=== PATIENT | female | born 1980 | race Caucasian/White ===

== ENCOUNTER 2017-02-26 10:42 | Day surgery (SDC) | payer MEDICAID ==
[2017-02-24 12:49] LABS: Basophils # (auto) 0 uL; Basophils % (auto) 0.2 % (0.0-2.0); Eosinophils # (auto) 0.2 uL; Eosinophils % (auto) 1.3 % (0.0-7.0); Hematocrit 43.1 % (36.0-46.0); Hemoglobin 14.5 g/dL (12.2-16.2); Lymphocytes # (auto) 1.9 uL; Mean Corpuscular Hemoglobin 29.3 pg (28.0-32.0); Mean Corpuscular Hgb Conc. 33.6 g/dL (32.0-36.0); Mean Corpuscular Volume 87.2 fL (80.0-100.0); Mean Platelet Volume 8.8 fL (6.9-10.8); Monocytes # (auto) 0.6 uL; Monocytes % (auto) 4.7 % (0.0-12.0); Neutrophils # (auto) 9.3 uL; Neutrophils % (auto) 77.8 % (37.0-80.0); Nucleated Red Blood Cells % 0.1 %; Platelet Count (auto) 253 10^3/uL (140-450); Red Cell Distribution Width 13.3 % (11.8-14.3)
[2017-02-24 12:54] LABS: Urine Bilirubin Negative (Negative); Urine Blood Negative /uL (Negative); Urine Color Yellow (Yellow); Urine Glucose Normal (Normal); Urine Ketone 2+ (Negative); Urine Nitrite Negative (Negative); Urine Urobilinogen Normal (Negative)
[2017-02-24 13:07] LABS: INR 0.92 (0.9-1.15); Partial Thromboplastin Time 25.4 sec (22.64-33.71)
[2017-02-24 13:44] LABS: Albumin 3.8 g/dL (3.4-5.0); BUN/Creatinine Ratio 15.2; Bilirubin, Total 0.5 mg/dL (0.2-1.0); Calcium 8.9 mg/dL (8.5-10.1); Potassium 3.7 mmol/L (3.5-5.1); Total Protein 7.9 g/dL (6.4-8.2)
[~2017-02-26] VITALS: Ht 170.2 cm; Wt 109.3 kg
[~2017-02-26 10:42] MED LIST: PREN-96 PO
[2017-02-26] MEDS ORDERED: ceFAZolin 1GM/50ML 50 ML IV ONE (10:50)
[2017-02-26] MEDS ORDERED: PROPOFOL 10 MG/ML 20 ML IV ONE (13:27)
[2017-02-26] MEDS ORDERED: ePHEDrine SULFATE 50 MG/ML AMP IV PRN (14:00)
[2017-02-26] MEDS ORDERED: LACTATED RINGER'S 1,000 ML IV SCH (14:07)
[2017-02-26 14:36] VITALS: BP 120/67
== END 2017-02-26 14:50 | disposition home or self-care (01) ==
LOC: SUR 10:42
PROVIDERS: ATTEND Specialist
DX: O03.4 Incomplete spontaneous abortion without complication (principal); O31.20X3 Continuing pregnancy after intrauterine death of one fetus or more, unspecified trimester, fetus 3; Z3A.30 30 weeks gestation of pregnancy; O03.9 Complete or unspecified spontaneous abortion without complication; O34.33 Maternal care for cervical incompetence, third trimester; E66.9 Obesity, unspecified
CPT/HCPCS: 36415; 80053; 80307; 81003; 81220; 83036; 84702; 85025; 85610; 85730; 86592; 86703; 86762; 86850; 86900; 86901; 87340; J0690; J2704

== ENCOUNTER → 2017-04-17 | Outpatient (CLI) | payer MEDICAID | END | disposition home or self-care (01) | LOC: LAB 09:14 | PROVIDERS: ATTEND Specialist | DX: N39.0 Urinary tract infection, site not specified (principal) | CPT/HCPCS: 87086 ==

== ENCOUNTER → 2017-05-20 | Outpatient (CLI) | payer MEDICAID ==
[2017-05-20 10:26] LABS: Basophils # (auto) 0.1 uL; Basophils % (auto) 0.6 % (0.0-2.0); Eosinophils # (auto) 0.2 uL; Eosinophils % (auto) 1.7 % (0.0-7.0); Lymphocytes # (auto) 1.9 uL; Lymphocytes % (auto) 14.4 % (10.0-50.0); Mean Corpuscular Hemoglobin 29.1 pg (28.0-32.0); Mean Corpuscular Hgb Conc. 33.3 g/dL (32.0-36.0); Mean Corpuscular Volume 87.5 fL (80.0-100.0); Monocytes # (auto) 0.7 uL; Monocytes % (auto) 5.4 % (0.0-12.0); Neutrophils # (auto) 10.5 uL; Neutrophils % (auto) 77.9 % (37.0-80.0); Platelet Count (auto) 246 10^3/uL (140-450); Red Blood Cells 4.46 10^6/uL (4.0-5.20); Red Cell Distribution Width 13.3 % (11.8-14.3); White Blood Cell 13.4 10^3/uL (4.4-10.8)
== END | disposition home or self-care (01) ==
LOC: LAB 09:55
PROVIDERS: ATTEND Specialist
DX: O99.810 Abnormal glucose complicating pregnancy (principal); Z3A.00 Weeks of gestation of pregnancy not specified
CPT/HCPCS: 36415; 82951; 85025

== ENCOUNTER 2017-06-12 03:26 | Observation (INO) | payer MEDICAID | END 2017-06-12 05:05 | disposition home or self-care (01) | DRG 566 | LOC: LDRP 03:26 | PROVIDERS: ADMIT Specialist; ATTEND Specialist | DX: O26.892 Other specified pregnancy related conditions, second trimester (principal); O09.522 Supervision of elderly multigravida, second trimester; R10.9 Unspecified abdominal pain; Z3A.27 27 weeks gestation of pregnancy | CPT/HCPCS: 59025; 94760; G0378 ==

== ENCOUNTER 2017-08-26 14:00 | Observation (INO) | payer MEDICAID | END 2017-08-26 18:39 | disposition home or self-care (01) | DRG 566 | LOC: LDRP 14:00 | PROVIDERS: ADMIT Specialist; ATTEND Specialist | DX: O34.33 Maternal care for cervical incompetence, third trimester (principal); Z3A.38 38 weeks gestation of pregnancy | CPT/HCPCS: 59025; 81002; G0378 ==

== ENCOUNTER 2017-09-01 00:19 | Inpatient (IN) | payer MEDICAID ==
[~2017-09-01] VITALS: Ht 170.2 cm; Wt 113.9 kg
[2017-09-01] MEDS ORDERED: LACTATED RINGER'S 1,000 ML IV SCH (01:20)
[2017-09-01] MEDS ORDERED: LACT. RINGERS/OXYTOCIN 20UNITS 1,000 ML IV SCH (01:20)
[2017-09-01] MEDS ORDERED: PENICILLIN G POT 5MIL/D5 50ML 50 ML IV ONE ×2 (01:28→01:30)
[2017-09-01] MEDS ORDERED: METHYLERGONOVINE MALEATE 0.2 MG/ML AMP IM PRN (01:30)
[2017-09-01] MEDS ORDERED: NALBUPHINE HCL 10 MG/1ml INJECTION IV PRN (01:30)
[2017-09-01] MEDS ORDERED: PHISODERM TOP SOLN 240ML BTL TOP PRN (01:30)
[2017-09-01] MEDS ORDERED: DERMOPLAST 60ML BOTTLE TOP PRN (01:30)
[2017-09-01] MEDS ORDERED: PROMETHAZINE HCL 25 MG/ML 1ML IM PRN (01:30)
[2017-09-01] MEDS ORDERED: LIDOCAINE 2% (LOCAL ANESTH.) PF 5ml SDV ID ONE (01:30)
[2017-09-01] MEDS ORDERED: WITCH HAZEL-GLYCERIN PAD TOP PRN (01:30)
[2017-09-01 01:32] LABS: Urine Bacteria FEW /hpf (None Seen); Urine Blood 1+ /uL (Negative); Urine Mucus FEW (None Seen); Urine WBC 4 /hpf (0 - 5)
[2017-09-01 01:37] LABS: Alcohol, Urine < 3.0 mg/dL (0-5); Amphetamine Screen, Urine NEGATIVE (NEGATIVE); Barbiturate Scree,Urine NEGATIVE (NEGATIVE); Benzodiazephine Screen, Urine NEGATIVE (NEGATIVE); Cannabinoid Screen, Urine NEGATIVE (NEGATIVE); Cocaine Screen, Urine NEGATIVE (NEGATIVE); Opiate Scree,Urine NEGATIVE (NEGATIVE); Phencyclidine Screen, Urine NEGATIVE (NEGATIVE)
[2017-09-01] MEDS ORDERED: LIDOCAINE 2% (LOCAL ANESTH.) PF 5ml SDV ONE (01:56)
[2017-09-01 02:01] LABS: Basophils # (auto) 0.1 uL; Basophils % (auto) 0.5 % (0.0-2.0); Eosinophils # (auto) 0 uL; Eosinophils % (auto) 0.3 % (0.0-7.0); Hematocrit 39.4 % (36.0-46.0); Lymphocytes # (auto) 1.3 uL; Lymphocytes % (auto) 9.2 % (10.0-50.0); Mean Corpuscular Hgb Conc. 33.1 g/dL (32.0-36.0); Mean Corpuscular Volume 84.4 fL (80.0-100.0); Monocytes # (auto) 0.7 uL; Neutrophils # (auto) 11.7 uL; Nucleated Red Blood Cells % 0.1 %; Platelet Count (auto) 225 10^3/uL (140-450); Red Blood Cells 4.66 10^6/uL (4.0-5.20); Red Cell Distribution Width 14.5 % (11.8-14.3); White Blood Cell 13.8 10^3/uL (4.4-10.8)
[2017-09-01 02:21] LABS: Albumin 2.7 g/dL (3.4-5.0); BUN/Creatinine Ratio 14.3; Calcium 8.8 mg/dL (8.5-10.1); Potassium 3.8 mmol/L (3.5-5.1)
[2017-09-01 02:24] LABS: Bilirubin, Total 0.2 mg/dL (0.2-1.0); INR 0.87 (0.9-1.15); Partial Thromboplastin Time 26.1 sec (23.78-33.04); Prothrombin Time 9.4 sec (9.27-12.13); Total Protein 6.9 g/dL (6.4-8.2)
[2017-09-01] MEDS ORDERED: PENICILLIN G POT 5MILLION UNIT VIAL ONE (04:39)
[2017-09-01] MEDS ORDERED: PENICILLIN G POTASSIUM 2,500,000 UNITS in D5W 5% 50 ML IV SCH (05:30)
[2017-09-01] MEDS ORDERED: ACETAMINOPHEN 325 MG TAB PO PRN (06:30)
[2017-09-01] MEDS ORDERED: IBUPROFEN 600 MG TAB PO PRN (06:45)
[2017-09-01] MEDS: IBUPROFEN 600 MG TAB PO PRN ×2 (06:49→12:07)
[2017-09-01] MEDS ORDERED: IBUPROFEN 600 MG TAB PO ONE (06:49)
[2017-09-01] MEDS: CEPHALEXIN 250 MG CAP PO SCH ×3 (07:10→18:51)
[2017-09-01 09:37] VITALS: BP 109/60
[2017-09-01] MEDS ORDERED: DOCUSATE CALCIUM 240 MG CAP PO SCH (10:00)
[2017-09-01 11:13] VITALS: BP 97/56
[2017-09-01] MEDS: DOCUSATE CALCIUM 240 MG CAP PO SCH (12:06)
[2017-09-01 19:00] VITALS: BP_SYST 101; BP_SYST 113; BP_DIAS 55; BP_DIAS 58
[2017-09-01 23:00] VITALS: BP 110/56
[2017-09-02] MEDS: CEPHALEXIN 250 MG CAP PO SCH ×2 (00:18→05:31)
[2017-09-02 03:00] VITALS: BP 104/62
[2017-09-02] MEDS: DOCUSATE CALCIUM 240 MG CAP PO SCH (07:02)
[2017-09-02 07:03] VITALS: BP 111/67
[2017-09-02] MEDS: IBUPROFEN 600 MG TAB PO PRN (07:03)
[2017-09-04 11:01] LABS: RPR Non Reactive (Non Reactive)
== END 2017-09-02 10:55 | disposition home or self-care (01) | DRG 542 ==
LOC: LDRP 00:19 → OBSVTOIN 00:19 → LDRP 01:58
PROVIDERS: ADMIT Obstetrics & Gynecology; ATTEND Obstetrics & Gynecology
PROC: 0DQR0ZZ Repair Anal Sphincter, Open Approach (ICD-10-PCS; principal; 2017-09-01)
PROC: 10D07Z6 Extraction of Products of Conception, Vacuum, Via Natural or Artificial Opening (ICD-10-PCS; 2017-09-01)
PROC: 0W8NXZZ Division of Female Perineum, External Approach (ICD-10-PCS; 2017-09-01)
DX: O76 Abnormality in fetal heart rate and rhythm complicating labor and delivery (principal); O70.20 Third degree perineal laceration during delivery, unspecified; O99.824 Streptococcus B carrier state complicating childbirth; Z37.0 Single live birth; Z3A.39 39 weeks gestation of pregnancy
CPT/HCPCS: 36415; 59025; 59409; 80053; 80307; 81001; 81002; 85025; 85610; 85730; 86592; 86850; 86900; 86901; 96365; 96366; J2540; J2590; J7060

== ENCOUNTER → 2018-05-08 | Day surgery (SDC) | payer MEDICAID ==
[~2018-05-08] VITALS: Ht 170.2 cm; Wt 102.5 kg
[~2018-05-08] MED LIST changes: +LACTATED RINGER'S 1,000 ML IV SCH; +ONDANSETRON HCL 4 MG/2 ML VIAL IV PRN; +ceFAZolin 1GM/50ML 50 ML IV ONE; +ePHEDrine SULFATE 50 MG/ML AMP IV PRN; +hydrALAZINE HCL 20 MG/ML VL IV PRN
[2018-05-08 15:22] VITALS: BP 128/72
== END | disposition home or self-care (01) ==
LOC: SUR 08:22
PROVIDERS: ATTEND Specialist
DX: O34.31 Maternal care for cervical incompetence, first trimester (principal); E66.9 Obesity, unspecified; Z98.890 Other specified postprocedural states
CPT/HCPCS: J0690

== ENCOUNTER 2018-07-15 12:00 | Observation (INO) | payer MEDICAID ==
[~2018-07-15 12:00] MED LIST changes: -LACTATED RINGER'S 1,000 ML IV SCH; -ONDANSETRON HCL 4 MG/2 ML VIAL IV PRN; -ceFAZolin 1GM/50ML 50 ML IV ONE; -ePHEDrine SULFATE 50 MG/ML AMP IV PRN; -hydrALAZINE HCL 20 MG/ML VL IV PRN
== END 2018-07-15 13:15 | disposition home or self-care (01) | DRG 566 ==
LOC: LDRP 12:00
PROVIDERS: ADMIT Obstetrics & Gynecology; ATTEND Obstetrics & Gynecology
DX: O42.912 Preterm premature rupture of membranes, unspecified as to length of time between rupture and onset of labor, second trimester (principal); O26.893 Other specified pregnancy related conditions, third trimester; N89.8 Other specified noninflammatory disorders of vagina; Z3A.23 23 weeks gestation of pregnancy
CPT/HCPCS: G0378

== ENCOUNTER 2018-10-19 12:10 | Observation (INO) | payer MEDICAID, OTHER | END 2018-10-19 14:40 | disposition home or self-care (01) | DRG 566 | LOC: LDRP 12:10 → EDUNIT# 12:10 → EDBD 12:10 | PROVIDERS: ADMIT Specialist; ATTEND Specialist | DX: O34.33 Maternal care for cervical incompetence, third trimester (principal); O09.523 Supervision of elderly multigravida, third trimester; Z3A.37 37 weeks gestation of pregnancy | CPT/HCPCS: 59025; 81002; G0378 ==

== ENCOUNTER 2018-10-25 06:25 | Inpatient (IN) | payer MEDICAID ==
[~2018-10-25] VITALS: Ht 170.2 cm; Wt 113.4 kg
[2018-10-25] MEDS ORDERED: LACT. RINGERS/OXYTOCIN 20UNITS 1,000 ML IV ONE (06:35)
[2018-10-25] MEDS ORDERED: PHISODERM TOP SOLN 240ML BTL TOP ONE (06:36)
[2018-10-25] MEDS ORDERED: DERMOPLAST 60ML BOTTLE TOP ONE (06:36)
[2018-10-25] MEDS ORDERED: WITCH HAZEL-GLYCERIN PAD TOP ONE (06:36)
[2018-10-25] MEDS ORDERED: LIDOCAINE 2%HCL (LOCAL ANESTH.) INJ 20ML MDV ONE (06:37)
[2018-10-25] MEDS ORDERED: LACT. RINGERS/OXYTOCIN 20UNITS 500 ML IV ONE (06:58)
[2018-10-25] MEDS ORDERED: LACTATED RINGER'S 1,000 ML IV SCH (06:58)
[2018-10-25] MEDS ORDERED: ACETAMINOPHEN 325 MG TAB PO PRN (07:00)
[2018-10-25] MEDS ORDERED: IBUPROFEN 600 MG TAB PO PRN ×2 (07:00→08:00)
[2018-10-25] MEDS ORDERED: DERMOPLAST 60ML BOTTLE TOP PRN (07:00)
[2018-10-25] MEDS ORDERED: WITCH HAZEL-GLYCERIN PAD TOP PRN (07:00)
[2018-10-25] MEDS ORDERED: PHISODERM TOP SOLN 240ML BTL TOP PRN (07:00)
[2018-10-25] MEDS ORDERED: LIDOCAINE 2%HCL (LOCAL ANESTH.) INJ 20ML MDV ID PRN (07:00)
[2018-10-25] MEDS ORDERED: IBUPROFEN 600 MG TAB PO ONE (07:38)
[2018-10-25] MEDS ORDERED: LACT. RINGERS/OXYTOCIN 20UNITS 1,000 ML IV SCH (07:58)
[2018-10-25 08:22] LABS: Basophils # (auto) 0 uL; Basophils % (auto) 0.1 % (0.0-2.0); Eosinophils # (auto) 0 uL; Eosinophils % (auto) 0.1 % (0.0-7.0); Hematocrit 37.7 % (36.0-46.0); Hemoglobin 12.3 g/dL (12.2-16.2); Lymphocytes # (auto) 0.8 uL; Lymphocytes % (auto) 4.9 % (10.0-50.0); Mean Corpuscular Hemoglobin 28.7 pg (28.0-32.0); Mean Corpuscular Hgb Conc. 32.6 g/dL (32.0-36.0); Mean Corpuscular Volume 88.1 fL (80.0-100.0); Monocytes # (auto) 0.6 uL; Neutrophils # (auto) 14.7 uL; Neutrophils % (auto) 90.9 % (37.0-80.0); Platelet Count (auto) 182 10^3/uL (140-450); Red Blood Cells 4.28 10^6/uL (4.0-5.20); Red Cell Distribution Width 14.1 % (11.8-14.3); White Blood Cell 16.2 10^3/uL (4.4-10.8)
[2018-10-25 08:39] LABS: INR < 0.93 (0.9-1.15); Partial Thromboplastin Time 25.1 sec (23.64-32.05)
[2018-10-25 08:42] LABS: Albumin 2.5 g/dL (3.4-5.0); Calcium 8.1 mg/dL (8.5-10.1)
[2018-10-25 08:48] LABS: BUN/Creatinine Ratio 20.5; Bilirubin, Total 0.2 mg/dL (0.2-1.0)
--- NOTE | 2018-10-25 09:10 | NUR ---
Ambulation: Patient OOB with standby assistance by RN. Patient ambulated to bathroom with steady gait. Patient able to void 250 ML without difficulty. [facility] teaching provided with returned demonstration by patient. Clean gown provided and bed linen changed. Patient ambulated back to bed with steady gait and no distress noted.
[2018-10-25] MEDS ORDERED: DOCUSATE CALCIUM 240 MG CAP PO SCH (10:00)
[2018-10-25 10:06] LABS: Urine Bacteria FEW /hpf (None Seen); Urine Blood 3+ /uL (Negative); Urine Specific Gravity 1.017 (1.001-1.035); Urine WBC 63 /hpf (0 - 5)
[2018-10-25 10:17] LABS: Alcohol, Urine < 3.0 mg/dL (0-5); Amphetamine Screen, Urine NEGATIVE (NEGATIVE); Barbiturate Scree,Urine NEGATIVE (NEGATIVE); Benzodiazephine Screen, Urine NEGATIVE (NEGATIVE); Cannabinoid Screen, Urine NEGATIVE (NEGATIVE); Cocaine Screen, Urine NEGATIVE (NEGATIVE); Opiate Scree,Urine NEGATIVE (NEGATIVE); Phencyclidine Screen, Urine NEGATIVE (NEGATIVE)
--- NOTE | 2018-10-25 10:30 | NUR ---
Report given to Rahul Almaguer Pt in stable condition.
[2018-10-25 11:07] VITALS: BP 95/52
[2018-10-25 15:03] VITALS: BP 98/57
[2018-10-25 19:00] VITALS: BP 86/51
[2018-10-25 23:00] VITALS: BP 97/55
[2018-10-26 02:59] VITALS: BP 85/54
[2018-10-26 07:00] VITALS: BP 87/51
--- NOTE | 2018-10-26 11:00 | NUR ---
Discharge: Discharge instructions given as ordered. Pt encouraged to follow up with [facility] as instructed. All questions and concerns addressed. Patient verbalized understanding. Medication reconciliation completed and copy given to patient. All required/requested vaccines given and copies of vaccinations given to patient. Patient encouraged to prepare to depart unit.
--- NOTE | 2018-10-26 11:35 | NUR ---
Discharge: Patient taken to vehicle via wheelchair with all personal belongings, accompanied by staff and family member. No distress noted at time of departure, no adverse changes in status since initial assessment.
[2018-10-27 06:06] LABS: RPR Non Reactive (Non Reactive)
== END 2018-10-26 11:35 | disposition home or self-care (01) | DRG 560 ==
LOC: LDRP 06:25
PROVIDERS: ADMIT Specialist; ATTEND Specialist
PROC: 10E0XZZ Delivery of Products of Conception, External Approach (ICD-10-PCS; principal; 2018-10-25)
PROC: 0KQM0ZZ Repair Perineum Muscle, Open Approach (ICD-10-PCS; 2018-10-25)
DX: O62.3 Precipitate labor (principal); O70.1 Second degree perineal laceration during delivery; O73.0 Retained placenta without hemorrhage; Z37.0 Single live birth; Z3A.38 38 weeks gestation of pregnancy
CPT/HCPCS: 36415; 59414; 80053; 80307; 81001; 84112; 85025; 85610; 85730; 86592; 86850; 86900; 86901; 96361; 96366; G0378; J2590

== ENCOUNTER → 2019-01-01 | Day surgery (SDC) | payer MEDICAID ==
[~2019-01-01] VITALS: Ht 170.2 cm; Wt 107.0 kg
[~2019-01-01] MED LIST changes: +MIDAZOLAM HCL 1MG/1ML-2 ML VIAL ONE; -PREN-96 PO; +ROCURONIUM 10MG/ML 10ML VIAL IV ONE; +ceFAZolin 1GM/50ML 50 ML IV ONE
== END | disposition home or self-care (01) ==
LOC: SUR 07:23
PROVIDERS: ATTEND Specialist
DX: Z30.2 Encounter for sterilization (principal); Z64.1 Problems related to multiparity; Z53.8 Procedure and treatment not carried out for other reasons
CPT/HCPCS: 58671; 86850; 86900; 86901; J0690; J2250

== ENCOUNTER → 2019-02-05 | Day surgery (SDC) | payer MEDICAID ==
[~2019-02-05] VITALS: Ht 170.2 cm; Wt 99.8 kg
[~2019-02-05] MED LIST changes: +GLYCOPYRROLATE 0.2 MG/ML 1ML VIAL ONE; +HYDROmorphone HCL 2 MG/ML VL IV PRN; +KETOROLAC TROMETH 30 MG/ML 1ML VIAL ONE; +LACTATED RINGER'S 1,000 ML IV SCH; +LIDOCAINE 1% (LOCAL ANESTH.) PF 5ml SDV ONE; +METOCLOPRAMIDE HCL 5MG/ml INJ 2ml VIAL ONE; +NALOXONE HCL 0.4 MG/ML VIAL IV PRN; +NEOSTIGMINE 1 MG/ML INJ (10mg/10ML VIAL) ONE; +ONDANSETRON HCL 4 MG/2 ML VIAL IV PRN; +PROPOFOL 10 MG/ML 20 ML IV ONE; +SODIUM CHLORIDE LOCK 10 ML ONE; +SUCCINYLCHOLINE CHLORIDE 20 MG/ML 10ML VIAL IV ONE; +ePHEDrine SULFATE 50 MG/ML AMP ONE; +fentaNYL CITRATE 100 MCG/2 ML VL ONE
[2019-02-05] MEDS: HYDROmorphone HCL 2 MG/ML VL IV PRN ×3 (12:58→13:28)
[2019-02-05 14:28] VITALS: BP 105/53
== END | disposition home or self-care (01) ==
LOC: SUR 10:01
PROVIDERS: ATTEND Specialist
DX: Z30.2 Encounter for sterilization (principal); E66.01 Morbid (severe) obesity due to excess calories; Z68.36 Body mass index [BMI] 36.0-36.9, adult; K21.9 Gastro-esophageal reflux disease without esophagitis; G47.33 Obstructive sleep apnea (adult) (pediatric); Z90.49 Acquired absence of other specified parts of digestive tract; Z79.899 Other long term (current) drug therapy
CPT/HCPCS: 58671; 86850; 86900; 86901; J0330; J0690; J1170; J1885; J2250; J2704; J2765; J3010

== ENCOUNTER → 2024-01-13 | Outpatient (CLI) | payer MEDICAID ==
[~2024-01-13] VITALS: Ht 170.2 cm; Wt 107.0 kg
[2024-01-13 10:12] LABS: Urine Bacteria None Seen /hpf (None Seen)
[2024-01-13 10:52] LABS: Basophils # (auto) 0 10 ^3/uL (0-0.2); Basophils % (auto) 0.5 % (0.0-2.0); Eosinophils # (auto) 0.2 10 ^3/uL (0-0.8); Hematocrit 45.9 % (36.0-46.0); Hemoglobin 15.5 g/dL (12.2-16.2); Lymphocytes # (auto) 1.7 10 ^3/uL (0.4-5.4); Lymphocytes % (auto) 19.1 % (10.0-50.0); Mean Corpuscular Hemoglobin 29.6 pg (28.0-32.0); Mean Corpuscular Hgb Conc. 33.8 g/dL (32.0-36.0); Mean Corpuscular Volume 87.7 fL (80.0-100.0); Monocytes # (auto) 0.4 10 ^3/uL (0-1.3); Monocytes % (auto) 4.4 % (0.0-12.0); Neutrophils # (auto) 6.7 10 ^3/uL (1.6-8.6); Nucleated Red Blood Cells % 0.1 %; Platelet Count (auto) 254 10^3/uL (140-450); Red Blood Cells 5.24 10^6/uL (4.0-5.20); Red Cell Distribution Width 13.7 % (11.8-14.3); White Blood Cell 9.1 10^3/uL (4.4-10.8)
[2024-01-13 10:59] LABS: INR 0.98 (0.9-1.15); Partial Thromboplastin Time 26.5 SEC (24.5-34.5); Prothrombin Time 10.4 sec (9.3-11.8)
[2024-01-13 11:01] LABS: Urine Blood Negative /uL (Negative); Urine Clarity Clear (Clear); Urine Color Light-Yellow (Yellow); Urine Protein, UAD Negative (Negative); Urine Specific Gravity 1.021 (1.001-1.035); Urine Squamous Epithelial Cell FEW /hpf (<5); Urine Urobilinogen Normal (Negative); Urine WBC 37 /hpf (0 - 5)
[2024-01-13 11:07] LABS: Alanine Aminotransferase 28 U/L (7-40); Albumin 4.4 g/dL (3.2-4.8); Alkaline Phosphatase 59 U/L (46-116); Anion Gap 6 (5-15); Aspartate Aminotransferase 12 U/L (13-40); BUN/Creatinine Ratio 22.7 (10.0-20.0); Bilirubin, Total 0.5 mg/dL (0.2-1.0); Blood Urea Nitrogen 20 mg/dL (9-23); Calcium 9.6 mg/dL (8.7-10.4); Carbon Dioxide 26 mmol/L (20-31); Chloride 108 mmol/L (98-107); Glucose 111 mg/dL (74-106); Potassium 4.2 mmol/L (3.5-5.1); Sodium 140 mmol/L (136-145); Total Protein 7.6 g/dL (5.7-8.2)
== END | disposition home or self-care (01) ==
LOC: LAB 10:03 → EDSTATUS 01-16 07:00
PROVIDERS: ATTEND Student in an Organized Health Care Education/Training Program
DX: M20.11 Hallux valgus (acquired), right foot (principal); M72.2 Plantar fascial fibromatosis; Z79.899 Other long term (current) drug therapy
CPT/HCPCS: 36415; 80053; 81001; 84702; 85025; 85610; 85730